=== PATIENT | male | born 1990 | race Caucasian/White ===

== ENCOUNTER 2019-11-24 00:18 | Emergency (ER) | payer SELFPAY ==
[~2019-11-24] VITALS: Ht 170.2 cm; Wt 81.6 kg
[2019-11-24 00:36] VITALS: BP_SYST 119
[2019-11-24 01:40] VITALS: BP_SYST 122
== END 2019-11-24 01:40 ==
LOC: SED 00:18
DX: F10.129 Alcohol abuse with intoxication, unspecified (principal); Y90.9 Presence of alcohol in blood, level not specified
CPT/HCPCS: 99283